=== PATIENT | male | born 1935 | race Hispanic/Latino ===

== ENCOUNTER → 2018-03-12 | Outpatient (CLI) | payer MEDICARE, OTHER ==
--- NOTE | 2018-03-12 17:54 | Diagnostic Imaging Report ---
PROCEDURE:X-RAY ABDOMEN - KUB COMPARISON:[facility], CT, CT ABDOMEN/PELVIS W, 01/02/2016, 11:19. INDICATIONS:BLOATING, CONSTIPATION FINDINGS: Nonobstructive bowel gas pattern with large amount of retained stool predominantly in the descending and sigmoid colon. No abnormal calcifications overlie the genitourinary system. Generalized osteopenia with degenerative changes in the lower lumbosacral spine. Degenerative changes of bilateral hip and sacroiliac joints. Cholecystectomy clips. Vascular coils are noted in the left midabdomen. Right lower lung air space opacity and blunting of the right lateral costophrenic sulcus. CONCLUSION: Nonobstructive bowel gas pattern with large amount of retained stool predominantly in the left colon, suggesting constipation. Right pleural effusion and likely associated atelectasis. Shine Cedeño M.D. Dictated by: Shine Cedeño M.D. on 03/12/2018 at 17:54 Electronically approved by: Shine Cedeño M.D. on 03/12/2018 at 17:54
== END ==
LOC: RAD 16:19
PROVIDERS: ATTEND Internal Medicine
DX: K74.60 Unspecified cirrhosis of liver (principal)
CPT/HCPCS: 74018

== ENCOUNTER → 2018-03-25 | Outpatient (CLI) | payer MEDICARE, OTHER ==
[~2018-03-25] MED LIST: DIATRIZOATE MEGL/DIATRIZOA SOD 30 ML BTL PO ONE; IOPAMIDOL 370 MG/ML 200 ML INFUS..BTL INJ ONE; SODIUM CHLORIDE 0.9% 50ML 50 ML ONE
[2018-03-25 08:41] LABS: BLOOD UREA NITROGEN 12 mg/dL (7-26); BUN/CREATININE RATIO 15 (6-25); CREATININE, SERUM 0.81 mg/dL (0.72-1.25); EST GLOMERULAR FILTRATION RATE > 60 ML/MIN (60-)
--- NOTE | 2018-03-25 10:27 | Diagnostic Imaging Report ---
PROCEDURE: CT ABDOMEN AND PELVIS WITH CONTRAST TECHNIQUE: The abdomen and pelvis were scanned utilizing a multidetector helical scanner from the diaphragm to the lesser trochanter after the IV administration of 100 cc of Isovue 370 and the oral administration of Gastrografin intermixed with water. Coronal and sagittal multiplanar reformations were obtained. DLP: 651.77 MGy-cm COMPARISON: Patients [facility], CT, CT ABDOMEN/PELVIS W, 01/02/2016, 11:19. INDICATIONS: Abdominal bloating FINDINGS: LOWER THORAX: Moderate right pleural effusion. Compressive right lower lobe atelectasis. Old right rib fracture. HEPATOBILIARY: Multiple hepatic low density foci compatible with metastatic disease appears new. Inferior subcapsular fluid collection is smaller. No biliary ductal dilatation. SPLEEN: No splenomegaly. 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 ADRENALS: No adrenal nodules. KIDNEYS/URETERS: No hydronephrosis, stones, or solid mass lesions. Embolization coils within the left kidney. Small exophytic focal hypodensity involving the lateral cortex of the left kidney is smaller. PELVIC ORGANS/BLADDER: Multiple pelvic clips. PERITONEUM / RETROPERITONEUM: Mild/moderate abdominal and pelvic sample ascites. LYMPH NODES: No lymphadenopathy. VESSELS: Atherosclerotic calcification. 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 The SMV is thrombosed. 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 GI TRACT: No distention or wall thickening. BONES AND SOFT TISSUES: Stable lytic process involving the right iliac bone. No new osseous findings. Degenerative changes of the spine. IMPRESSION: 1. Interval development of multiple hepatic lesions compatible with metastasis. 2. Interval development of mild/moderate abdominal and pelvic ascites. 3. Moderate right pleural effusion and right lower lobe compressive atelectasis . Moose Colón D.O. Dictated by: Moose Colón D.O. on 03/25/2018 at 10:28 Electronically approved by: Moose Colón D.O. on 03/25/2018 at 10:28
== END ==
LOC: CT 07:54
PROVIDERS: ATTEND Surgery
DX: R14.0 Abdominal distension (gaseous) (principal)
CPT/HCPCS: 36415; 74177; 82565; 84520; Q9967